=== PATIENT | female | born 1935 | race Caucasian/White ===

== ENCOUNTER → 2016-07-01 | Outpatient (CLI) | payer OTHER ==
[~2016-07-01] VITALS: Ht 149.9 cm; Wt 59.9 kg
[~2016-07-01] MED LIST: ADULT LOW DOSE81 MG PO; ALPHA LIPOIC A300 MG PO; AMOXICILLIN500 M1 PO; BYSTOLIC 5 MG5 M1 PO; CALTRATE 600 +1 EACH PO; CALTRATE-600 W1 EACH PO; CELEBREX 200 M200 M1 PO; CELEBREX 200 M200 MG PO; CIPROFLOXACIN500 M1 PO; CLARITIN-D 241 EACH PO; CLARITIN10 MG PO; CO Q-10100 MG PO; DRAMAMINE25 MG PO; DURAGESIC1 EAC2 TD; ENDOCET 10-3251 EACH PO; ENDOCET 5-3251 EACH PO; FENTANYL PA25 MCG/HR TD; FENTANYL PA50 MCG/HR TD; FENTANYL PA50 MCG/HR TP; FENTANYL PATCH75 MCG TD; FENTANYL PATCH75 MCG TP; FERRO-TIME325 MG PO; FOLIC ACID 40400 MC1 PO; FOLIC ACID0.8 MG PO; GABAPENTIN300 MG PO; GELNIQUE30 GM; HYDROCODON-ACE1 EAC5 PO; HYDROCODONE-AP1 EA12 PO; LEVOTHROID150 MCG PO; LYRICA 50 MG50 M1 PO; MACROBID 100 M100 M1 PO; MACRODANTIN50 MG PO; MEDROLDOSEPACK PO; METAMUCIL PAC1 UDPKT PO; METHADONE HCL 110 M1 PO; METHADONE HCL5 MG PO; METHADOSE10 M1 PO; METHADOSE10 MG PO; METHYLIN 10 MG10 MG PO; METHYLIN5 M1 PO; METHYLIN5 MG PO; METOCLOPRAMIDE10 MG PO; MIACALCIN IU; MS CONTIN30 MG PO; NASONEX17 GM NS; NEURONTIN 300300 M1 PO; NEURONTIN 300M300 M2 PO; NEURONTIN600 MG PO; NITROFURANTOIN50 M2 PO; NUCYNTA ER150 MG PO; NUCYNTA ER200 MG PO; NUCYNTA ER250 MG PO; OMEGA-31000 M1 PO; OMEPRAZOLE; ONDANSETRON HCL4 M2 PO; OXYCODONE-ACET1 EAC2 PO; OXYCODONE-ACET1 EACH PO; PERCOCET 10-321 EACH; PERCOCET 10-321 EACH PO; PREMARIN CREAM; PRILOSEC 10MG C10 M1 PO; PRILOSEC 20 MG20 MG PO; PROBIOTIC1 EACH PO; PROLOPRIM100 MG PO; SENNA PO; SENNA-S TABLET1 EACH PO; SENOKOT-S1 TA2 PO; SIMVASTATIN40 MG PO; SINGULAIR 10 MG10 M1 PO; SM NATURAL BAL100 MG PO; SYNTHROID125 MCG PO; TRAMADOL 50 MG50 MG PO; TURMERIC500 MG PO; VITAMIN D1000 UNI1 PO; VITAMIN D400 UNI4; VITCB500GO; XANAX 0.25 MG0.25 MG PO; ZOFRAN 4 MG ORAL4 M1 DIS; ZOFRAN4 MG PO; ZYRTEC 10 MG TA10 M1 PO
--- NOTE | ~2016-07-01 | HPC ---
[facility] [place] [address] [address] PAIN MANAGEMENT CONSULTATION Name: IDRIS BARKER Room #: REG Aryan Francis#: [id number] Admission: 07/01/16 Attend Phys: Be Ness DO Discharge: Date of : 33 Report #: [id number] THIS REPORT FOR: //name// CC: Anthony Ness The patient is an 81-year-old female, well known to the pain clinic, being treated for thoracolumbar scoliosis, chronic pain syndrome, requiring complex medication management. Last seen in the pain clinic on 05/13/2016. Her management is complicated by some ongoing cognitive decline, though she is seen in the company of her who is an excellent historian, and very helpful with her care. Last visit, we had patient utilizing 150 mg tapentadol b.i.d. with Percocet for breakthrough pain. We had tried to increase the dose from 200 to 250 over the course of days. At 250 mg, the patient notes really, he cannot note any change different than at 150 mg b.i.d. of tapentadol. She does still use Percocet typically mid morning, rarely in the afternoon. PHYSICAL EXAMINATION: Shows an 81-year-old female, BMI is 26.6 kilograms per meter squared. Vital signs are stable as noted in the EMR. Rises from the chair using armrest. Diffuse tenderness in the mid back area. Thoracolumbar scoliosis appreciated. Lower extremity strength is symmetric. Straight leg raise is negative. Skin integument is intact. We reviewed the fact that opiate medications are being used to provide analgesia adequate to support activities of daily living, not attempting to achieve a specific pain score on the 0-10 Visual Analog Scale. The current opiate medications are providing sufficient analgesia to allow the patient to participate in activities of daily living. The patient is not exhibiting any aberrant behavior suggestive of drug diversion. The patient is not having any adverse reactions to medications. The patient is not suffering from daytime somnolence or mental acuity changes. The patient is managing opiate-induced constipation with appropriate nhyl-ihc-wbmgrqe agents and dietary considerations. The patient was counseled on concern for caution with operating a motor vehicle while using opiate medications. A physical exam was performed and the patient's functional status was evaluated. All patients with back pain were advised against the bed rest greater than 4 days and were advised to return to normal activities. Pain score assessment was noted and the treatment plan was reviewed with the patient. All current medications, both prescribed and OTC were reviewed and reconciled on the electronic medical record. Tobacco screening was accomplished and smoking cessation was advised when indicated. BMI was noted and diet/exercise modification was recommended for all patients following outside normal parameters. [address] [address] PAIN MANAGEMENT CONSULTATION Name: MJIDRIS Room #: REG SETH Francis#: [id number] Admission: 07/01/16 Attend Phys: Be Ness DO Discharge: Date of : 33 Report #: [id number] I reviewed with the patient today their responsibilities to safeguard prescription medications, reviewed their responsibility to utilize medications only as prescribed by the physician. They are to seek and receive pain medications only from 1 physician group ( [facility]). They are to use 1 pharmacy and keep the clinic informed if they change pharmacies. Their responsibilities include making followup visits in a timely fashion and to avoid abrupt discontinuation of medication usage. Their responsibilities further include bringing their medications (bottles from the pharmacy with residual pills) to the visit for possible confirmation of pill counts and the patient understands it is their responsibility to submit to random drug screens to ensure both that the medications prescribed are present, and that no other controlled substances are present. All prescriptions provided today were generated electronically. ASSESSMENT: Thoracolumbar scoliosis and spondylosis, requiring complex medication management, chronic pain syndrome, medication management compounded by comorbidities including cognitive decline. RECOMMENDATION: After long discussion with the patient and her today, we have elected to rotate back to tapentadol 150 mg b.i.d. Continue Percocet 10/325 one tablet up to once a day as needed for breakthrough pain. Follow up in 2 months for reevaluation. <ELECTRONICALLY SIGNED> By: Be Ness DO 07/08/16 0858 1539 Be Ness DO /nt
[2016-07-01 11:37] VITALS: BP 124/69
== END | disposition home or self-care (01) ==
LOC: PAIN 06:47
DX: M47.895 Other spondylosis, thoracolumbar region (principal); G89.4 Chronic pain syndrome

== ENCOUNTER → 2016-10-24 | Outpatient (CLI) | payer OTHER ==
[~2016-10-24] VITALS: Ht 149.9 cm; Wt 59.0 kg
[~2016-10-24] MED LIST changes: +DURAGESIC1 EAC2 TRANSDERM
--- NOTE | ~2016-10-24 | HPC ---
[facility] [place] [address] [place] [address] PAIN MANAGEMENT CONSULTATION Name: IDRIS HERNANDEZ Room #: REG PIPERAryan Francis#: [id number] Admission: 10/24/16 Attend Phys: Be Ness DO Discharge: Date of : 33 Report #: [id number] THIS REPORT FOR: //name// CC: Anthony Ness The patient is an 81-year-old female well known to the pain clinic, typically treated for thoracolumbar scoliosis and spondylosis causing chronic pain syndrome requiring complex medication management. Her comorbidities of significant declining cognitive ability and dementia is problematic. We have tried multiple opiates over time. Last visit 08/26/2016, we had discontinued tapentadol, we had trialed various doses. Last dose was 150 mg b.i.d. I tried to prescribe the Nucynta ER, though this was much too costly. Last visit, we ultimately elected to go back to Percocet 10/325 one-half tablet 4 times a day. Returns to the pain clinic today, unfortunately noting ongoing pain concerns. She is seen as usual with her who is very helpful in providing her history. Again, pain primarily low back, left greater than right. They do feel in retrospect, the Nucynta was much better, but it was quite costly and they simply cannot afford it. This puts us in a difficult position. She is complaining of some dizziness, low back pain. She uses a walker both for balance and for offloading some weight. They do like to get to the mall or large box stores and do some walking. With the spring weather coming up, she is trying to do some walking outdoors, but pain is quite problematic. She rates as 7-8 on a 0-10 visual analog scale. Notes pain is exacerbated any time she is standing or walking. PHYSICAL EXAMINATION: Unchanged. An 81-year-old female, pleasantly befuddled. BMI is 25.7 kilograms per meter squared. Vital signs are stable as noted in the EMR. She rises from chair using armrest. Gait is a little ataxic. Diffuse tenderness across the low back. We reviewed the fact that opiate medications are being used to provide analgesia adequate to support activities of daily living, not attempting to achieve a specific pain score on the 0-10 Visual Analog Scale. The current opiate medications are providing sufficient analgesia to allow the patient to participate in activities of daily living. The patient is not exhibiting any aberrant behavior suggestive of drug diversion. The patient is not having any adverse reactions to medications. The patient is not suffering from daytime somnolence or mental acuity changes. The patient is managing opiate-induced constipation with appropriate dmxy-pov-ljapmuh agents and dietary considerations. The patient was counseled on concern for caution with operating a motor vehicle while using opiate medications. A physical exam was performed and the patient's functional status was evaluated. [address] [address] PAIN MANAGEMENT CONSULTATION Name: IDRIS HERNANDEZ Room #: REG [facility] Penny#: [id number] Admission: 10/24/16 Attend Phys: Be eNss DO Discharge: Date of : 33 Report #: [id number] All patients with back pain were advised against the bed rest greater than 4 days and were advised to return to normal activities. Pain score assessment was noted and the treatment plan was reviewed with the patient. All current medications, both prescribed and OTC were reviewed and reconciled on the electronic medical record. Tobacco screening was accomplished and smoking cessation was advised when indicated. BMI was noted and diet/exercise modification was recommended for all patients following outside normal parameters. I reviewed with the patient today their responsibilities to safeguard prescription medications, reviewed their responsibility to utilize medications only as prescribed by the physician. They are to seek and receive pain medications only from 1 physician group ( [facility]). They are to use 1 pharmacy and keep the clinic informed if they change pharmacies. Their responsibilities include making followup visits in a timely fashion and to avoid abrupt discontinuation of medication usage. Their responsibilities further include bringing their medications (bottles from the pharmacy with residual pills) to the visit for possible confirmation of pill counts and the patient understands it is their responsibility to submit to random drug screens to ensure both that the medications prescribed are present, and that no other controlled substances are present. All prescriptions provided today were generated electronically. ASSESSMENT: Thoracolumbar scoliosis and spondylosis requiring complex medication management with comorbidity including dwindling cognitive function. RECOMMENDATIONS: After long discussion with Mr. Hernandez and the patient, we have elected to trial a Duragesic patch. We have done this once before in the distant past. We will leave the lowest dose, 12 mcg q. 72 hours. I will ask them to put the patch on tonight and then tomorrow morning try and use the least amount of one-half Percocet tablets they can throughout the 24-hour cycle. I have taken the liberty of writing for 2 weeks (5 patches). I did provide them with a 2-week release prescription. If this is efficacious, we will see them back in 6 weeks, otherwise we will see them back within 1-2 weeks. The patient was discharged in good and stable condition. We spent a moderately prolonged period of time from approximately 10:38-11:05. Greater than 50% of the 25+ minute visit was spent counseling the patient, reviewing therapeutic options, medical history and making complex medication decisions. <ELECTRONICALLY SIGNED> By: Be Ness DO 10/25/16 1308 [id number] Be Ness DO /nt
[2016-10-24 14:15] VITALS: BP 142/81
== END | disposition home or self-care (01) ==
LOC: PAIN 07:30
DX: M41.85 Other forms of scoliosis, thoracolumbar region (principal); M47.895 Other spondylosis, thoracolumbar region; G89.29 Other chronic pain

== ENCOUNTER → 2016-11-14 | Outpatient (CLI) | payer OTHER ==
[~2016-11-14] VITALS: Ht 149.9 cm; Wt 60.7 kg
[~2016-11-14] MED LIST changes: +DURAGESIC1 EAC3 TD
--- NOTE | ~2016-11-14 | HPC ---
[facility] [address] [place] [address] PAIN MANAGEMENT CONSULTATION Name: IDRIS BARKER Room #: REG PIPERAryan Francis#: [id number] Admission: 11/14/16 Attend Phys: Be Ness DO Discharge: Date of : 33 Report #: [id number] THIS REPORT FOR: //name// CC: Anthony Ness The patient is an 81-year-old female being treated for thoracolumbar scoliosis and spondylosis, chronic pain syndrome requiring complex medication management. Comorbidity including significant cognitive decline and dementia does make medication management problematic. She is seen in the company of her who has always supportive. We had tried multiple medications over time. Ultimately at last visit, we trialed reverting back to Duragesic at 12 mcg. After two cycles, she still has ongoing pain. Continued use Percocet for breakthrough pain. I had them increase the dose to 2 tablets i.e. 24 mcg of Duragesic. Today, they tell me that this seems to be quite helpful. She is using Percocet 10/325 typically 1 to 1-1/2 tablets a day. reports that she is much more functional. No problems with daytime somnolence, mental acuity changes, or constipation. The patient tells me that her subjective pain score is 3/10, it is the lowest number I have seen. Her gait is tandem. She looks a little less painful and is indeed in good spirits. Per both the patient and her , she does seem to be much more active. PHYSICAL EXAMINATION: Otherwise fairly unremarkable, 81-year-old female. BMI is 27 kilograms per meter squared. Vital signs are stable as noted on the EMR. Does not use tobacco products. Arise from chair easily. Gait is tandem. She has some scoliosis with tenderness across the low back, but no discrete trigger points noted. ASSESSMENT: Symptomatic thoracolumbar scoliosis with spondylosis, chronic pain syndrome requiring complex medication management with comorbidity of moderate dementia. RECOMMENDATION: Ultimately, we have elected to increase Duragesic to 25 mcg patch. Continue Percocet , limit 1 to 1-1/2 tablets a day, i.e., 45 tablets for 30 days. I have taken the liberty of writing for 2 months of current medication. Follow up at that time, earlier if needed. <ELECTRONICALLY SIGNED> By: Be Ness DO 11/15/16 0713 1520 2330 Be Ness DO /nt
[2016-11-14 14:21] VITALS: BP 112/68
== END | disposition home or self-care (01) ==
LOC: PAIN 07:22
DX: M41.85 Other forms of scoliosis, thoracolumbar region (principal); M47.895 Other spondylosis, thoracolumbar region; G89.4 Chronic pain syndrome; F03.90 Unspecified dementia, unspecified severity, without behavioral disturbance, psychotic disturbance, mood disturbance, and anxiety

== ENCOUNTER → 2017-01-09 | Outpatient (CLI) | payer OTHER ==
[~2017-01-09] VITALS: Ht 152.4 cm; Wt 60.9 kg
[~2017-01-09] MED LIST changes: +DIAZEPAM 2MG TAB2 MG PO
[2017-01-09 12:36] VITALS: BP 154/86
== END | disposition home or self-care (01) ==
LOC: PAIN 07:30
DX: M47.895 Other spondylosis, thoracolumbar region (principal); M41.85 Other forms of scoliosis, thoracolumbar region; F03.90 Unspecified dementia, unspecified severity, without behavioral disturbance, psychotic disturbance, mood disturbance, and anxiety

== ENCOUNTER → 2017-03-13 | Outpatient (CLI) | payer OTHER ==
[~2017-03-13] VITALS: Ht 152.4 cm; Wt 59.9 kg
[~2017-03-13] MED LIST changes: +DURAGESIC25 MCG/HR TRANSDERM; +Fentanyl Patch 25 Mc TRANSDERM; +VALIUM5 MG PO
--- NOTE | ~2017-03-13 | HPC ---
[facility] [address] [facility] [address] PAIN MANAGEMENT CONSULTATION Name: IDRIS HERNANDEZ Room #: REG SETH Francis#: [id number] Admission: 03/13/17 Attend Phys: eB Ness DO Discharge: Date of : 33 Report #: [id number] THIS REPORT FOR: //name// CC: Anthony Ness The patient is an 82-year-old female, long known to the pain clinic, typically treated for thoracolumbar spondylosis and scoliosis, axial back pain, requiring high risk complex medication management complicated by significant dementia. The patient returns to pain clinic today, last visit was 01/09/2017. We continued the patient on Duragesic 25 mcg q. 72 hours, Percocet 10/325 half to one tablet, limit 45 tablets for 30 days and gabapentin 600 mg t.i.d. Returns to pain clinic today in the company of her who is extremely supportive. The patient looks pretty good today. She is alert and oriented, though again memory short-term is incredibly poor. Does note some mid low back pain, chronic, rates at a 6 on a VAS. Mr. Hernandez tells me that she is continuing with her Duragesic patch 25 mcg q. 72 hours. He typically gives her one-half oxycodone tablet every morning and then she may or may not use any other tablets throughout the day. She did have 1 tablet this afternoon before coming to today's appointment. At last visit, I talked about increasing physical activity. She still remains relatively sedentary. We talked about trying to increase her physical activity with recreational walking 10-20 minutes daily. Mr. Hernandez notes that usually about after 15 minutes or so on her feet, she does start to complain of axial back pain. She notes that she has been hoping to make the bed. They have lowered the bed, taking away one mattress to keep it closer to the bed for fear of falls. She states her back pain does hurt when she makes to bed, but she has continued to do this ____. PHYSICAL EXAMINATION: Otherwise unchanged, an 82-year-old female, BMI is 25.8 kilograms per meter squared. Vital signs stable as noted in the EMR. Subjective pain score is 6 on a VAS. Pain primarily in the mid thoracic to upper lumbar back, significant thoracolumbar scoliosis. Lower extremity strength is preserved. Again, she appears alert, but recall is poor. We reviewed the fact that opiate medications are being used to provide analgesia adequate to support activities of daily living, not attempting to achieve a specific pain score on the 0-10 Visual Analog Scale. The current opiate medications are providing sufficient analgesia to allow the patient to participate in activities of daily living. The [place] [address] PAIN MANAGEMENT CONSULTATION Name: IDRIS HERNANDEZ Room #: REG SETH Francis#: [id number] Admission: 03/13/17 Attend Phys: Be Ness DO Discharge: Date of : 33 Report #: [id number] aberrant behavior suggestive of drug diversion. The patient is not having any adverse reactions to medications. The patient is not suffering from daytime somnolence or mental acuity changes. The patient is managing opiate-induced constipation with appropriate edwz-hbz-ydynfte agents and dietary considerations. The patient was counseled on concern for caution with operating a motor vehicle while using opiate medications. A physical exam was performed and the patient's functional status was evaluated. All patients with back pain were advised against the bed rest greater than 4 days and were advised to return to normal activities. Pain score assessment was noted and the treatment plan was reviewed with the patient. All current medications, both prescribed and OTC were reviewed and reconciled on the electronic medical record. Tobacco screening was accomplished and smoking cessation was advised when indicated. BMI was noted and diet/exercise modification was recommended for all patients following outside normal parameters. I reviewed with the patient today their responsibilities to safeguard prescription medications, reviewed their responsibility to utilize medications only as prescribed by the physician. They are to seek and receive pain medications only from 1 physician group ( [facility]). They are to use 1 pharmacy and keep the clinic informed if they change pharmacies. Their responsibilities include making followup visits in a timely fashion and to avoid abrupt discontinuation of medication usage. Their responsibilities further include bringing their medications (bottles from the pharmacy with residual pills) to the visit for possible confirmation of pill counts and the patient understands it is their responsibility to submit to random drug screens to ensure both that the medications prescribed are present, and that no other controlled substances are present. All prescriptions provided today were generated electronically. Long discussion with Mr. Hernandez and the patient today. The patient seems to be remarkably stable on current medication. We had gone through a host of other agents, I am pleased that with current medications, she is doing well. I have elected to write for a 3 month prescription today. Follow up in 3 months for reevaluation, earlier if needed. By: [id number] Be Ness DO /nt
[2017-03-13 13:59] VITALS: BP 145/79
== END | disposition home or self-care (01) ==
LOC: PAIN 07:11
DX: M47.895 Other spondylosis, thoracolumbar region (principal); M41.85 Other forms of scoliosis, thoracolumbar region; Z79.899 Other long term (current) drug therapy

== ENCOUNTER → 2017-07-10 | Outpatient (CLI) | payer OTHER ==
[~2017-07-10] VITALS: Ht 152.4 cm; Wt 60.8 kg
[~2017-07-10] MED LIST changes: +DURAGESIC1 EAC4 TRANSDERM; +SYNTHROID100 MC1 PO; -SYNTHROID125 MCG PO
--- NOTE | ~2017-07-10 | HPC ---
[facility] [place] [address] PAIN MANAGEMENT CONSULTATION Name: IDRIS BARKER Room #: REG SETH Penny#: [id number] Admission: 07/10/17 Attend Phys: Be Ness DO Discharge: Date of : 33 Report #: [id number] THIS REPORT FOR: //name// CC: Anthony Ness HISTORY OF PRESENT ILLNESS: The patient is an 82-year-old female, was typically treated for thoracolumbar scoliosis and spondylosis, axial back pain requiring high risk complex medication management. Last seen in the pain clinic on 03/13/2017. Continue on Duragesic 25 mcg q. 72 hours, gabapentin 600 mg t.i.d. and Percocet 10/325 half to one tablet 2-3 times a day and limit 45 tablets for 30 days. The patient returns to pain clinic today noting medications are providing sufficient analgesia for the patient to participate in the activities of daily living. She has a fairly profound dementia. She is well cared for by her . She is always "pleasantly befuddled." She did have a little vertigo. She saw an alcoholic counselor and diagnosed with acute labyrinthitis. She is going to physical therapy for Rosalia maneuvers tomorrow. Otherwise, she is doing reasonably well. Rates pain a 6 or 7 on a VAS. This is unchanged for the patient. She notes that this mild pain is across the low back, but she does continue to participate in activities of daily living. We reviewed the fact that opiate medications are being used to provide analgesia adequate to support activities of daily living, not attempting to achieve a specific pain score on the 0-10 Visual Analog Scale. The current opiate medications are providing sufficient analgesia to allow the patient to participate in activities of daily living. The patient is not exhibiting any aberrant behavior suggestive of drug diversion. The patient is not having any adverse reactions to medications. The patient is not suffering from daytime somnolence or mental acuity changes. The patient is managing opiate-induced constipation with appropriate jhzu-kln-ozavuen agents and dietary considerations. The patient was counseled on concern for caution with operating a motor vehicle while using opiate medications. A physical exam was performed and the patient's functional status was evaluated. All patients with back pain were advised against the bed rest greater than 4 days and were advised to return to normal activities. Pain score assessment was noted and the treatment plan was reviewed with the patient. All current medications, both prescribed and OTC were reviewed and reconciled on the electronic medical record. Tobacco screening was accomplished and smoking cessation was advised when indicated. BMI was noted and diet/exercise modification was recommended for all patients following outside normal parameters. [address] [address] PAIN MANAGEMENT CONSULTATION Name: MJIDRIS Room #: REG SETH Francis#: [id number] Admission: 07/10/17 Attend Phys: Be Ness DO Discharge: Date of : 33 Report #: [id number] I reviewed with the patient today their responsibilities to safeguard prescription medications, reviewed their responsibility to utilize medications only as prescribed by the physician. They are to seek and receive pain medications only from 1 physician group ([facility]). They are to use 1 pharmacy and keep the clinic informed if they change pharmacies. Their responsibilities include making followup visits in a timely fashion and to avoid abrupt discontinuation of medication usage. Their responsibilities further include bringing their medications (bottles from the pharmacy with residual pills) to the visit for possible confirmation of pill counts and the patient understands it is their responsibility to submit to random drug screens to ensure both that the medications prescribed are present, and that no other controlled substances are present. All prescriptions provided today were generated electronically. PHYSICAL EXAMINATION: GENERAL: Shows 82-year-old female, BMI is 26.2 kilograms per meter squared. VITAL SIGNS: Stable, seen in the company of her who is supportive NEUROLOGICAL: Extraocular nerves are intact. I do not detect any nystagmus or lateral gaze deviation, but she does have some subjective vertigo. MUSCULOSKELETAL: Rises from chair using armrest. Diffuse tenderness across the low back, significant thoracolumbar scoliosis and lower extremity strength is symmetric. ASSESSMENT: Thoracolumbar scoliosis and spondylosis, axial back pain requiring high risk complex medication management, stable on baseline medications. RECOMMENDATION: Continue current medication unchanged, Duragesic 25 mcg q. 72 hours, Percocet 10/325 half to one tablet up to 2-3 times a day, limit 45 tablets for 30 days and gabapentin 600 mg t.i.d. Follow up in 3 months for reevaluation, earlier if needed. <ELECTRONICALLY SIGNED> By: Be Ness DO 07/11/17 0758 [id number] 2312 Be Ness DO /nt
[2017-07-10 12:58] VITALS: BP 135/71
== END ==
LOC: PAIN 06-26 07:08
DX: M41.85 Other forms of scoliosis, thoracolumbar region (principal); M47.895 Other spondylosis, thoracolumbar region; Z79.899 Other long term (current) drug therapy

== ENCOUNTER → 2017-10-06 | Outpatient (CLI) | payer OTHER ==
[~2017-10-06] VITALS: Ht 149.9 cm; Wt 59.4 kg
[~2017-10-06] MED LIST changes: -SYNTHROID100 MC1 PO; +SYNTHROID125 MCG PO
--- NOTE | ~2017-10-06 | HPC ---
[facility] [place] [address] PAIN MANAGEMENT CONSULTATION Name: IDRIS BARKER Room #: REG Aryan Dori.#: [id number] Admission: 10/06/17 Attend Phys: Be Ness DO Discharge: Date of : 33 Report #: [id number] THIS REPORT FOR: //name// CC: Anthony Ness DATE OF SERVICE: 10/06/2017 The patient is a very pleasant 82-year-old female, long known to the pain clinic, typically treated for thoracolumbar scoliosis, spondylosis, axial back pain requiring high risk complex medication management. Last seen in the pain clinic 07/10/2017. Continued on Duragesic 25 mcg q.72h., gabapentin 600 mg t.i.d., Percocet 10/325 a half to one tablet 2-3 times a day, limit 45 tablets for 30 days. Returns to pain clinic today, seen in the company of her who is supportive. She has increasing dementia, as usually pleasant. She is having some vertigo, did see a physical therapist and had Rosalia maneuvers in June, which afforded good relief of her vertigo and dizziness, though her notes that this is beginning to recur. Rates her pain a 4 on VAS though notes occasionally pain is problematic. Whenever asked if she has pain, she typically replies in the affirmative. PHYSICAL EXAMINATION: Shows 82-year-old female, BMI is 26.4 kilograms per meter squared. Vital signs are stable as noted in the EMR. Has mild nystagmus, left greater than right gaze deviation. Has a moderate ataxic gait. Does use a walker for balance. Lower extremity strength is generally preserved. Diffuse tenderness across the low back. No discrete trigger points noted. RECOMMENDATION: Discussion with the patient and her today. does provide the majority of the history. The patient states that she has some episodic somnolence. No problems with constipation. notes that they have been occasionally using a full Percocet tablet prior to activity where they are a little more involved, i.e., going out to the doctor's office or shopping. Otherwise, a half tablet seems to suffice. We reviewed the fact that opiate medications are being used to provide analgesia adequate to support activities of daily living, not attempting to achieve a specific pain score on the 0-10 Visual Analog Scale. The current opiate medications are providing sufficient analgesia to allow the patient to participate in activities of daily living. The patient is not exhibiting any aberrant behavior suggestive of drug diversion. The patient is not having any adverse reactions to medications. The patient is not suffering from daytime somnolence or mental acuity changes. The patient is managing opiate-induced constipation with appropriate mclw-qrf-gicjedz agents and dietary considerations. The patient was counseled on concern for [place] [address] PAIN MANAGEMENT CONSULTATION Name: IDRIS BARKER Room #: REG SETH Francis#: [id number] Admission: 10/06/17 Attend Phys: Be Ness DO Discharge: Date of : 33 Report #: [id number] a motor vehicle while using opiate medications. A physical exam was performed and the patient's functional status was evaluated. All patients with back pain were advised against the bed rest greater than 4 days and were advised to return to normal activities. Pain score assessment was noted and the treatment plan was reviewed with the patient. All current medications, both prescribed and OTC were reviewed and reconciled on the electronic medical record. Tobacco screening was accomplished and smoking cessation was advised when indicated. BMI was noted and diet/exercise modification was recommended for all patients following outside normal parameters. I reviewed with the patient today their responsibilities to safeguard prescription medications, reviewed their responsibility to utilize medications only as prescribed by the physician. They are to seek and receive pain medications only from 1 physician group ( [facility]). They are to use 1 pharmacy and keep the clinic informed if they change pharmacies. Their responsibilities include making followup visits in a timely fashion and to avoid abrupt discontinuation of medication usage. Their responsibilities further include bringing their medications (bottles from the pharmacy with residual pills) to the visit for possible confirmation of pill counts and the patient understands it is their responsibility to submit to random drug screens to ensure both that the medications prescribed are present, and that no other controlled substances are present. All prescriptions provided today were generated electronically. ASSESSMENT: Thoracolumbar scoliosis, spondylosis, axial back pain requiring complex medication management. The patient is stable on baseline medication. RECOMMENDATIONS: We will continue Duragesic 25 mcg q.72h.; Percocet 10/325 half to one tablet b.i.d. t.i.d., limit 45 tablets for 30 days. I have taken the liberty of writing for 2 months of current medication. Reviewing the chart actually I do not see a recent drug screen. I am dictating after the patient left the clinic, we will endeavor to get a buccal swab at next visit. Again, no aberrant behavior suggestive for drug diversion, simply complying with her opiate consent to treat contract. <ELECTRONICALLY SIGNED> By: Be Ness DO 10/08/17 0819 1637 24 Be Ness, DO /nt
[2017-10-06 13:25] VITALS: BP 142/78
== END ==
LOC: PAIN 06:47
DX: M47.895 Other spondylosis, thoracolumbar region (principal); Z79.899 Other long term (current) drug therapy

== ENCOUNTER → 2017-12-08 | Outpatient (CLI) | payer OTHER ==
[~2017-12-08] VITALS: Ht 149.9 cm; Wt 61.2 kg
[~2017-12-08] MED LIST changes: +SYNTHROID100 MC1 PO; -SYNTHROID125 MCG PO
--- NOTE | ~2017-12-08 | HPC ---
[facility] [place] [address] [place] [address] PAIN MANAGEMENT CONSULTATION Name: IDRIS BARKER Room #: REG SETH Francis#: [id number] Admission: 12/08/17 Attend Phys: Be Ness DO Discharge: Date of : 33 Report #: [id number] THIS REPORT FOR: //name// CC: Anthony Ness DATE OF SERVICE: 12/08/2017 HISTORY OF PRESENT ILLNESS: The patient is a very pleasant 82-year-old female, long treated for thoracolumbar scoliosis, spondylosis, axial back pain requiring complex medication management. Comorbidity includes dementia. She has always seen in the company of her who is very supportive. Last seen in pain clinic, 10/06/2017, continued on Duragesic 25 mcg q.72 hours, Percocet 10/325 typically 1-1/2 tablets a day, gabapentin 600 mg t.i.d. The patient returns to pain clinic today, we had a prolonged visit from 12:50 to 1315, greater than 50% of this 25+ minute visit was spent counseling the patient. We did get a buccal drug swab today. No aberrant behavior suggestive of drug diversion, simply complying with the opiate consent to treat contract. The patient notes ongoing pain, low back, buttock, and left leg. Axial back pain again relatively unchanged. Little concerned about the radicular pain component, though she rates the pain a 4 on a VAS. Today, her and I did talk about other therapeutic options. He asked about CBD oil. I suggested that maybe a reasonable thing to trial. If he buys it at a licensed distributor in [place], which recently made CBD oil legal, it should have no THC. If the patient experiences any cognitive concerns with this agent, I would discontinue it abruptly. If, however, it affords her some relief, we will be able to wean down a little bit on her Percocet. PHYSICAL EXAMINATION: GENERAL: Otherwise shows an 82-year-old female, pleasant and actually a little more alert today than I had seen her in some time. She does wax and wane with cognition. VITAL SIGNS: BMI is 27.3 kilograms per meter squared. Blood pressure is 161/87, pulse 66, respirations of 15. MUSCULOSKELETAL: Rises from chair using armrest, modestly antalgic gait, uses a walker for balance, but she can take a few steps on her own. Diffuse tenderness across the low back. No discrete trigger points are noted. Left leg does show some slight decrease in hip flexion, lower extremity extension strength, decrease patellar reflex, though straight leg raise is negative. We reviewed the fact that opiate medications are being used to provide analgesia [address] [address] PAIN MANAGEMENT CONSULTATION Name: IDRIS BARKER Room #: REG SETH Francis#: [id number] Admission: 12/08/17 Attend Phys: Be Ness DO Discharge: Date of : 33 Report #: [id number] adequate to support activities of daily living, not attempting to achieve a specific pain score on the 0-10 Visual Analog Scale. The current opiate medications are providing sufficient analgesia to allow the patient to participate in activities of daily living. The patient is not exhibiting any aberrant behavior suggestive of drug diversion. The patient is not having any adverse reactions to medications. The patient is not suffering from daytime somnolence or mental acuity changes. The patient is managing opiate-induced constipation with appropriate pkiq-rtp-ciqyvyw agents and dietary considerations. The patient was counseled on concern for caution with operating a motor vehicle while using opiate medications. A physical exam was performed and the patient's functional status was evaluated. All patients with back pain were advised against the bed rest greater than 4 days and were advised to return to normal activities. Pain score assessment was noted and the treatment plan was reviewed with the patient. All current medications, both prescribed and OTC were reviewed and reconciled on the electronic medical record. Tobacco screening was accomplished and smoking cessation was advised when indicated. BMI was noted and diet/exercise modification was recommended for all patients following outside normal parameters. I reviewed with the patient today their responsibilities to safeguard prescription medications, reviewed their responsibility to utilize medications only as prescribed by the physician. They are to seek and receive pain medications only from 1 physician group ( [facility]). They are to use 1 pharmacy and keep the clinic informed if they change pharmacies. Their responsibilities include making followup visits in a timely fashion and to avoid abrupt discontinuation of medication usage. Their responsibilities further include bringing their medications (bottles from the pharmacy with residual pills) to the visit for possible confirmation of pill counts and the patient understands it is their responsibility to submit to random drug screens to ensure both that the medications prescribed are present, and that no other controlled substances are present. All prescriptions provided today were generated electronically. ASSESSMENT: Thoracolumbar scoliosis with spondylosis with ongoing axial back pain requiring complex medication management, component of left L4 radiculopathy status post multiple back surgeries. The patient is generally stable on baseline medications. RECOMMENDATION: Continue Duragesic 25 mcg q.72 hours. Continue Percocet 10/325 one-half tablet 3 times a day (45 tablets for 30 days). Continue gabapentin 600 mg t.i.d. I have taken the liberty of writing for 2 months of current medication. We will have her follow up with one of my [facility]. [facility] [address] [place] [address] PAIN MANAGEMENT CONSULTATION Name: IDRIS BARKER Room #: REG SETH Francis#: [id number] Admission: 12/08/17 Attend Phys: Be Ness DO Discharge: Date of : 33 Report #: [id number] Stable on baseline medication for quite some time. I did suggest she consider trialing CBD oil at her 's request, may help with ongoing pain concerns. Discharged in good and stable condition. By: 1518 0045 Be Ness DO /nt
[2017-12-08 12:38] VITALS: BP 161/87
== END ==
LOC: PAIN 06:33
DX: M47.815 Spondylosis without myelopathy or radiculopathy, thoracolumbar region (principal); M41.85 Other forms of scoliosis, thoracolumbar region; M54.5 Low back pain; Z79.899 Other long term (current) drug therapy

== ENCOUNTER → 2018-03-18 | Outpatient (CLI) | payer OTHER ==
[~2018-03-18] VITALS: Ht 149.9 cm; Wt 58.4 kg
--- NOTE | ~2018-03-18 | HPC ---
[facility] [address] [place] [address] PAIN MANAGEMENT CONSULTATION Name: IDRIS BARKER Room #: REG SETH Dori.#: [id number] Admission: 03/18/18 Attend Phys: Edson Ness DO Discharge: Date of : 33 Report #: [id number] THIS REPORT FOR: //name// CC: Anthony Ness DATE OF SERVICE: 03/18/2018 REFERRING PHYSICIAN: Anthony Dickens M.D. CHIEF COMPLAINT: Back pain. HISTORY OF PRESENT ILLNESS: As you know, the patient is an 83-year-old female who suffers from thoracolumbar scoliosis, spondylosis of the lumbar spine and axial back pain requiring complex medication management. Her comorbidity also includes some dementia. She returns today in followup visit with request to continue medication therapy. She is currently taking Duragesic at 25 mcg q. 72 hours and Percocet 10/325 one half tab to 1 tab per day. She is also taking gabapentin 600 mg morning and 1200 mg at night. She returns today in followup visit to adjust medication therapy as her pain is "uncontrolled." She is placing pain score at 8/10. ALLERGIES: DIPHENHYDRAMINE and CODEINE. CURRENT MEDICATIONS: Percocet 10/325 one half tab to 1 tab p.o. every day p.r.n. pain, fentanyl 25 mcg q. 72 hours, gabapentin 600 mg in the morning and 1200 mg at night, celecoxib 200 mg once a day and levothyroxine 100 mcg per day. SOCIAL HISTORY: The patient denies tobacco, alcohol or IV or illicit drug use. She is retired and retired years ago. She is accompanied by her present in room today. IMAGING DATA: No new imaging available. 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 No rheumatoid arthritis. She places pain intensity at 8/10. She is a fall risk but has not had a fall in last 3 months. She does use a cane for ambulation. She is not on blood thinner. She is treated for hypertension. She has been on opioids for an extended period of time. She is a low risk for opioid dependency. Functional assessment pain impact tool , ghyz-ep-bjndvpcu interference. PHYSICAL EXAMINATION: VITAL SIGNS: Blood pressure 142/84, pulse 72 and respiratory rate 14 and unlabored. The patient is 93% on room air. Height 4 feet 11 inches tall, [facility] [address] [place] [address] PAIN MANAGEMENT CONSULTATION Name: IDRIS BARKER [id number] Admission: 03/18/18 Attend Phys: Edson Ness DO Discharge: Date of : 33 Report #: [id number] weight 128.8 pounds and BMI calculated 26.0. GENERAL: Well-developed, well-nourished and well-hydrated kyphotic and scoliotic 83-year-old female appearing her stated age, placing current pain score at 8/10. HEENT: Normocephalic and atraumatic. Pupils equal, round and reactive to light. Extraocular muscles are intact. Speech is fluent for the patient. EXTREMITIES: Show no clubbing, no cyanosis and no edema. MUSCULOSKELETAL: The patient rises from a chair utilizing arm rest. She has a mildly antalgic gait favoring what appears to be left lower extremity over right. She has diffuse tenderness over the lower back. No spinous process tenderness. There is noted scoliosis, kyphosis and some dextroscoliotic curvature. ASSESSMENT: 1. Idiopathic scoliosis. 2. Idiopathic kyphosis. 3. 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 4. Axial back pain. 5. Failed lumbar spine surgery. 6. Complicated medical management. 7. Chronic intractable pain. PLAN: 1. The patient returns today in followup visit indicating pain that is a level of 8/10. She states that despite the use of opioids, her pain continues. It does appear her symptoms are more related to neuropathic issues and is not being treated effectively. I would recommend changes in the medication therapy in hopes of improving pain further. The patient and I discussed this at length today. 2. We reviewed the fact that opiate medications are being used to provide analgesia adequate to support activities of daily living, not attempting to achieve a specific pain score on the 0-10 Visual Analog Scale. The current opiate medications are providing sufficient analgesia to allow the patient to participate in activities of daily living. The patient is not exhibiting any aberrant behavior suggestive of drug diversion. The patient is not having any adverse reactions to medications. The patient is not suffering from daytime somnolence or mental acuity changes. The patient is managing opiate-induced constipation with appropriate injo-osf-sjgvndl agents and dietary considerations. The patient was counseled on concern for caution with operating a motor vehicle while using opiate medications. A physical exam was performed and the patient's functional status was evaluated. All patients with back pain were advised against the bed rest greater than 4 days and were advised to return to normal activities. Pain score assessment was noted and the treatment plan was reviewed with the patient. All current medications, both prescribed and OTC were reviewed and reconciled on the [address] [address] PAIN MANAGEMENT CONSULTATION Name: IDRIS BARKER Room #: REG CLAryan Francis#: [id number] Admission: 03/18/18 Attend Phys: Edson Ness DO Discharge: Date of : 33 Report #: [id number] electronic medical record. Tobacco screening was accomplished and smoking cessation was advised when indicated. BMI was noted and diet/exercise modification was recommended for all patients following outside normal parameters. I reviewed with the patient today their responsibilities to safeguard prescription medications, reviewed their responsibility to utilize medications only as prescribed by the physician. They are to seek and receive pain medications only from 1 physician group ( [facility]). They are to use 1 pharmacy and keep the clinic informed if they change pharmacies. Their responsibilities include making followup visits in a timely fashion and to avoid abrupt discontinuation of medication usage. Their responsibilities further include bringing their medications (bottles from the pharmacy with residual pills) to the visit for possible confirmation of pill counts and the patient understands it is their responsibility to submit to random drug screens to ensure both that the medications prescribed are present, and that no other controlled substances are present. All prescriptions provided today were generated electronically. 3. The patient was provided a refill prescription on her fentanyl 25 mcg patch 1 patch q. 72 hours and I have given the patient #10 patches, releases of today, 4 weeks from today, 8 weeks from today, 3 months' worth of medication. I would not recommend escalating fentanyl given the patient's underlying dementia and her age and this will only complicate the situation and would likely provide no improvement. 4. The patient was provided prescription of Percocet 1/2 tab to one tab p.o. every day, #45 with releases of today, 4 weeks from today, 8 weeks from today, 3 months' worth of medication. I again do not recommend escalating this dose, especially immediate release formulations in individuals that are often older age with already existing underlying mental decrease. This could complicate her situation and make her at a greater risk for falls. Do not recommend escalating this dose further. 5. The patient does have some neuropathic pain. I do feel needs to be addressed more effectively. Currently, she is taking gabapentin 600 mg morning and 1200 mg at night. Recommend escalating the dose to 600 mg morning, 300 mg at noon and 1200 mg at night for the next 5 days; then reach 600 mg in the morning, 600 mg noon and 1200 mg at night for 5 days and if necessary, then escalate the dose in the morning hours to 900 mg in the morning, 600 mg noon and 1200 mg at night. The patient has prescriptions available and does not need prescriptions of this medication. 6. We will see the patient back in followup visit in 3 months to discuss further treatment options. <ELECTRONICALLY SIGNED> By: Edson Ness DO 03/24/18 1259 1310 [id number] Edson Ness DO /nt
[2018-03-18 12:11] VITALS: BP 142/84
== END ==
LOC: PAIN 06:51
DX: M47.27 Other spondylosis with radiculopathy, lumbosacral region (principal); M41.86 Other forms of scoliosis, lumbar region; G89.4 Chronic pain syndrome; Z79.899 Other long term (current) drug therapy

== ENCOUNTER → 2018-06-10 | Outpatient (CLI) | payer OTHER ==
[~2018-06-10] VITALS: Ht 149.9 cm; Wt 67.6 kg
[2018-06-10 11:42] VITALS: BP 144/77
== END ==
LOC: PAIN 10:24
DX: M54.5 Low back pain (principal); G89.29 Other chronic pain; Z79.899 Other long term (current) drug therapy; Z79.891 Long term (current) use of opiate analgesic

== ENCOUNTER → 2018-09-23 | Outpatient (CLI) | payer OTHER ==
[~2018-09-23] VITALS: Ht 152.4 cm; Wt 59.9 kg
[~2018-09-23] MED LIST changes: +ASPIR 8181 MG PO; +CRANBERRY200 MG PO; +LIPITOR10 MG PO; +LISINOPRIL10 MG PO; +PROBIOTIC1 EAC1 PO; +VITAMIN D2000 UNIT PO
[2018-09-23 11:00] VITALS: BP 144/69
--- NOTE | 2018-09-23 11:04 | NUR ---
Pain Clinic Assessment: 1. History of Osteoarthritis: BACK History of Rheumatoid Arthritis: Not Applicable 2. Height: 5 ft. 0 in. 152.4 cm. Weight: 132.0 lb. oz. 59.875 kg. Patient's BMI: 25.8 3. Vital Signs: BP: 144/69 Pulse: 78 Resp: 16 Temp: 02 Sat: 95 ECG Mon: 4. Pain Intensity: 8 with walking 5. Fall Risk: Dizziness: N Needs help standing or walking: N Fallen in the last 3 months: N Fall risk comments: 6. Patient on Blood Thinner: None 7. History of Hypertension: Y 8. Opioid Therapy greater than 6 weeks: Y Opiate Contract Signed: 12/14/15 9. Risk Assessment Tool Provided: LOW RISK 0 10. Functional Assessment Tool: 11. Recreational Drug Use: Never Drug Type: Tobacco Use: Never Smoker Tobacco Type: Amount or Packs/day: How Many Years: Alcohol Use: No Frequency: Quant:
--- NOTE | 2018-09-24 09:25 | HPC ---
[facility] [place] [address] PAIN MANAGEMENT CONSULTATION Name: IDRIS BARKER Room #: REG [facility] Dori.#: [id number] Admission: 09/23/18 ������������������ Attend Phys: Quyen Loja Discharge: ������������������ Date of : 33 Report #: [id number] THIS REPORT FOR: //name// CC: Quyen Loja Anthony Dickens DATE OF SERVICE: 09/23/2018 CHIEF COMPLAINT: Back pain. HISTORY OF PRESENT ILLNESS: This is a very pleasant 83-year-old female who returns to the pain clinic today for refill of her medications. 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 She has had multiple back surgeries in the past. She is here with her who is very supportive of her. He does help her with her medications and does lots of work around the house since she is unable to due to her pain that increases when she is walking and standing. She tells me that her pain score is 8/10 today, mostly across her lower back, at the waistline. She says when she is sitting down and her medications do help her relieve this pain. She denies any constipation or daytime sleepiness. She is able to answer all my questions appropriately today. ALLERGIES: BENADRYL AND CODEINE. CURRENT LIST OF MEDICATIONS: Aspirin 81 mg daily, vitamin D3 daily, cranberry daily, probiotic daily, lisinopril 10 mg daily, atorvastatin 10 mg at bedtime, gabapentin 600 mg 3 times a day, Percocet 10/325 half to one tablet b.i.d., fentanyl patch 25 mcg every 72 hours, Celebrex 200 mg daily and thyroid medicine 100 mcg daily. PHYSICAL EXAMINATION: GENERAL: This is a well-developed, well-nourished, well-hydrated 83-year-old female, who appears as her stated age, placing her pain score today at 8/10. HEENT: Normocephalic, atraumatic. Pupils equal, round and reactive to light. Speech is fluent. She is answering questions appropriately today. EXTREMITIES: No clubbing, no cyanosis, no edema. MUSCULOSKELETAL: The patient rises from the chair using the arm rest and using her walker today. She does walk with an antalgic gait. She is noted to have thorough lumbar scoliosis and kyphosis. Lower extremity strength judged to be 4/5 bilaterally. ASSESSMENT: 1. Idiopathic scoliosis, idiopathic kyphosis. 2. 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 3. Axial back pain. 4. Failed lumbar spine surgery. 5. Complicated medical therapy under terms of written opioid agreement, [address] [address] PAIN MANAGEMENT CONSULTATION Name: IDRIS BARKER Room #: REG [facility] Francis#: [id number] Admission: 09/23/18 ������������������ Attend Phys: Quyen Loja Discharge: ������������������ Date of : 33 Report #: [id number] intractable back pain. We reviewed the fact that opiate medications are being used to provide analgesia adequate to support activities of daily living, not attempting to achieve a specific pain score on the 0-10 Visual Analog Scale. The current opiate medications are providing sufficient analgesia to allow the patient to participate in activities of daily living. The patient is not exhibiting any aberrant behavior suggestive of drug diversion. The patient is not having any adverse reactions to medications. The patient is not suffering from daytime somnolence or mental acuity changes. The patient is managing opiate-induced constipation with appropriate prcf-ile-pemorfp agents and dietary considerations. The patient was counseled on concern for caution with operating a motor vehicle while using opiate medications. A physical exam was performed and the patient's functional status was evaluated. All patients with back pain were advised against the bed rest greater than 4 days and were advised to return to normal activities. Pain score assessment was noted and the treatment plan was reviewed with the patient. All current medications, both prescribed and OTC were reviewed and reconciled on the electronic medical record. Tobacco screening was accomplished and smoking cessation was advised when indicated. BMI was noted and diet/exercise modification was recommended for all patients following outside normal parameters. I reviewed with the patient today their responsibilities to safeguard prescription medications, reviewed their responsibility to utilize medications only as prescribed by the physician. They are to seek and receive pain medications only from 1 physician group ( [facility]). They are to use 1 pharmacy and keep the clinic informed if they change pharmacies. Their responsibilities include making followup visits in a timely fashion and to avoid abrupt discontinuation of medication usage. Their responsibilities further include bringing their medications (bottles from the pharmacy with residual pills) to the visit for possible confirmation of pill counts and the patient understands it is their responsibility to submit to random drug screens to ensure both that the medications prescribed are present, and that no other controlled substances are present. All prescriptions provided today were generated electronically. PLAN: 1. We discussed treatment options with the patient and the family today. The patient is filling her medications appropriately through the PDMP report. We discussed the CDC guidelines and morphine mEq. The patient follows at 75 per MME with her current medications. Therefore, according to Dr. Ness, the patient has been very stable on these medications. We will give her 3 months' medications. Scripts given today of fentanyl 25 mcg, #10 for release today and 4-week and 8-week and Percocet 10/325 #45 to release today, 4-week and 8-week. [address] [address] PAIN MANAGEMENT CONSULTATION Name: IDRIS BARKER Room #: REG [facility] Francis#: [id number] Admission: 09/23/18 ������������������ Attend Phys: Quyen Loja Discharge: ������������������ Date of : 33 Report #: [id number] 2. The patient and family understand the CDC guidelines that are grateful for these medications and keep them safeguarded at all times. The patient and family tell me that they no longer need gabapentin medication filled by us, that Dr. Dickens has taken over writing these medications. 3. The patient will be seen in 3-month time period. The patient seen with Dr. Edson Ness who also collaborated care today. ��������������������������������������������� <ELECTRONICALLY SIGNED> ���������������������������������������� By: Quyen Loja ��������������������������������������������� 09/24/18 0925 1423 0801 Quyen Loja /fran
== END ==
LOC: PAIN 06:58
DX: M47.817 Spondylosis without myelopathy or radiculopathy, lumbosacral region (principal); M40.299 Other kyphosis, site unspecified; Z88.8 Allergy status to other drugs, medicaments and biological substances; Z79.899 Other long term (current) drug therapy

== ENCOUNTER → 2018-12-28 | Outpatient (CLI) | payer OTHER ==
[~2018-12-28] VITALS: Ht 149.9 cm; Wt 58.9 kg
[2018-12-28 13:11] VITALS: BP 136/76
--- NOTE | 2018-12-28 14:04 | NUR ---
Pain Clinic Assessment: 1. History of Osteoarthritis: BACK History of Rheumatoid Arthritis: Not Applicable 2. Height: 4 ft. 11 in. 149.9 cm. Weight: 129.8 lb. oz. 58.877 kg. Patient's BMI: 26.2 3. Vital Signs: BP: 136/76 Pulse: 67 Resp: 16 Temp: 02 Sat: 97 ECG Mon: 4. Pain Intensity: 8 5. Fall Risk: Dizziness: N Needs help standing or walking: Y Fallen in the last 3 months: N Fall risk comments: 6. Patient on Blood Thinner: None 7. History of Hypertension: Y 8. Opioid Therapy greater than 6 weeks: Y Opiate Contract Signed: 12/14/15 9. Risk Assessment Tool Provided: LOW RISK 0 10. Functional Assessment Tool: 11. Recreational Drug Use: Never Drug Type: Tobacco Use: Never Smoker Tobacco Type: Amount or Packs/day: How Many Years: Alcohol Use: No Frequency: Quant:
--- NOTE | 2018-12-30 10:08 | HPC ---
[facility] [place] [address] PAIN MANAGEMENT CONSULTATION Name: IDRIS BARKER Room #: REG [facility].#: [id number] Admission: 12/28/18 ������������������ Attend Phys: Quyen Loja Discharge: ������������������ Date of : 33 Report #: [id number] THIS REPORT FOR: //name// CC: Quyen Loja Anthony Dickens DATE OF SERVICE: 12/28/2018 CHIEF COMPLAINT: Back pain. HISTORY OF PRESENT ILLNESS: This is a very pleasant 83-year-old female who returns to the pain clinic today with her for refill of her medication. She has had multiple back surgeries in the past and suffers from scoliosis and spondylosis of the lumbar spine. She tries to be active around the house, but that does cause increase in pain; therefore, she has much difficulty accomplishing very much and her is very beneficial in helping her. She tells me her pain is also worse with standing and walking. It is better with lying down. She rates her pain score an 8/10 today and is due for one of her breakthrough pain pills. The patient was wondering about decreasing her medications. She feels that she is on a lot of medicines, though her tells me she can tell a difference when she has not taken her pain pills and she is less active and then just sits in her chair due to pain. ALLERGIES: BENADRYL and CODEINE. CURRENT LIST OF MEDICATIONS: Synthroid 100 mcg, Celebrex 200 mg daily, gabapentin 600 mg 3 times a day, atorvastatin, Zestril, probiotic, cranberry, vitamin D, aspirin, fentanyl patch 25 mcg and oxycodone half to one t.i.d. PQRS: 1. The patient has a history of osteoarthritis in her back. She denies any rheumatoid arthritis. 2. Height is 4 feet 11 inches, weight is 129 and BMI is 26. 3. VITAL SIGNS: Blood pressure 136/76, pulse is 67, respirations 16 and oxygen sat is 97. 4. Pain score is 8/10. 5. Denies dizziness. Does need help with walking and standing and uses a walker. She has not fallen in the last 3 months. 6. The patient is not on any blood thinners but does take medicine for hypertension. 7. Opioid therapy is greater than 6 weeks; therefore, an opiate signed contract is on the chart. The risk assessment tool is low. Functional assessment is 2470. 8. Recreational drug use, she denies. She is not a smoker and does not drink [address] [address] PAIN MANAGEMENT CONSULTATION Name: IDRIS BARKER Room #: REG [facility]#: [id number] Admission: 12/28/18 ������������������ Attend Phys: Quyen Loja Discharge: ������������������ Date of : 33 Report #: [id number] alcohol. We did check the prescription monitoring system. The patient is filling appropriately for her medications and is due for those to be filled today. We will check a drug screen on her in the next visit. PHYSICAL EXAMINATION: GENERAL: This is a well-developed, well-nourished, well-hydrated 83-year-old who appears her stated age, placing her current pain score today at 8/10. HEENT: Normocephalic and atraumatic. Pupils equal, round and reactive to light. Speech is fluent. EXTREMITIES: No clubbing, no cyanosis and no edema. MUSCULOSKELETAL: The patient is noted to have thoracic lumbar scoliosis and kyphosis. She does walk with an antalgic gait using a walker. Her lower extremity strength judged to be 4/5 bilaterally. She uses the armrest of the chair to rise from sitting to standing position to her walker. ASSESSMENT: 1. Idiopathic scoliosis and idiopathic kyphosis. 2. 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 3. Axial back pain. 4. Failed lumbar spine surgery. 5. Complex medical therapy and written opioid agreement. 6. Chronic intractable back pain. We reviewed the fact that opiate medications are being used to provide analgesia adequate to support activities of daily living, not attempting to achieve a specific pain score on the 0-10 Visual Analog Scale. The current opiate medications are providing sufficient analgesia to allow the patient to participate in activities of daily living. The patient is not exhibiting any aberrant behavior suggestive of drug diversion. The patient is not having any adverse reactions to medications. The patient is not suffering from daytime somnolence or mental acuity changes. The patient is managing opiate-induced constipation with appropriate rjws-dyu-ubkojgl agents and dietary considerations. The patient was counseled on concern for caution with operating a motor vehicle while using opiate medications. A physical exam was performed and the patient's functional status was evaluated. All patients with back pain were advised against the bed rest greater than 4 days and were advised to return to normal activities. Pain score assessment was noted and the treatment plan was reviewed with the patient. All current medications, both prescribed and OTC were reviewed and reconciled on the electronic medical record. Tobacco screening was accomplished and smoking cessation was advised when indicated. BMI was noted and diet/exercise modification was recommended for all patients following outside normal parameters. [address] [address] PAIN MANAGEMENT CONSULTATION Name: IDRIS BARKER Room #: REG S[facility] Francis#: [id number] Admission: 12/28/18 ������������������ Attend Phys: Quyen Loja Discharge: ������������������ Date of : 33 Report #: [id number] I reviewed with the patient today their responsibilities to safeguard prescription medications, reviewed their responsibility to utilize medications only as prescribed by the physician. They are to seek and receive pain medications only from 1 physician group ( [facility]). They are to use 1 pharmacy and keep the clinic informed if they change pharmacies. Their responsibilities include making followup visits in a timely fashion and to avoid abrupt discontinuation of medication usage. Their responsibilities further include bringing their medications (bottles from the pharmacy with residual pills) to the visit for possible confirmation of pill counts and the patient understands it is their responsibility to submit to random drug screens to ensure both that the medications prescribed are present, and that no other controlled substances are present. All prescriptions provided today were generated electronically. PLAN: 1. We discussed treatment options with the patient today. The patient was wondering if she should decrease her medications filling that she is not sure that they are helpful. I explained to her that we would slowly decrease her medicines if that was to be what she decided, decreasing her from 25 to 12 mcg fentanyl patch, though I believe that her pain would increase. The patient's voices his concern that he does not believe that she should decrease her medicine. He tells me that he can tell when she needs her breakthrough pain pills and that she becomes less active when she is in pain. He would like to keep her functioning and on the same medications. 2. Scripts given today for fentanyl 25 mcg, #10 for today and 4-week release and Oxycodone 10/325 half to one, #45 for today and 4-week release. The patient's prescription monitoring system is appropriate and according to the CDC guidelines, her morphine milligram equivalent is 82; therefore, she was given 2 months of medication. 3. The patient will call for an appointment when needed. She does not appear overmedicated or had problems with constipation. 4. This case was discussed with Dr. Ness who collaborated care today. ��������������������������������������������� <ELECTRONICALLY SIGNED> ���������������������������������������� By: Quyen Loja ��������������������������������������������� 12/30/18 1008 1427 [id number] Quyen Loja /nt
== END ==
LOC: PAIN 10:24
DX: M47.817 Spondylosis without myelopathy or radiculopathy, lumbosacral region (principal); M41.86 Other forms of scoliosis, lumbar region; G89.4 Chronic pain syndrome; Z79.891 Long term (current) use of opiate analgesic; Z79.899 Other long term (current) drug therapy

== ENCOUNTER → 2019-03-03 | Outpatient (CLI) | payer OTHER ==
[~2019-03-03] VITALS: Ht 149.9 cm; Wt 53.4 kg
[2019-03-03 10:49] VITALS: BP 108/58
--- NOTE | 2019-03-03 11:00 | NUR ---
Pain Clinic Assessment: 1. History of Osteoarthritis: BACK History of Rheumatoid Arthritis: Not Applicable 2. Height: 4 ft. 11 in. 149.9 cm. Weight: 117.8 lb. oz. 53.434 kg. Patient's BMI: 23.8 3. Vital Signs: BP: 108/58 Pulse: 81 Resp: 16 Temp: 02 Sat: 94 ECG Mon: 4. Pain Intensity: 8 5. Fall Risk: Dizziness: N Needs help standing or walking: Y Fallen in the last 3 months: N Fall risk comments: 6. Patient on Blood Thinner: None 7. History of Hypertension: Y 8. Opioid Therapy greater than 6 weeks: Y Opiate Contract Signed: 12/14/15 9. Risk Assessment Tool Provided: LOW RISK 0 10. Functional Assessment Tool: 11. Recreational Drug Use: Never Drug Type: Tobacco Use: Never Smoker Tobacco Type: Amount or Packs/day: How Many Years: Alcohol Use: No Frequency: Quant:
--- NOTE | 2019-03-04 13:15 | HPC ---
[facility] [place] [address] PAIN MANAGEMENT CONSULTATION Name: IDRIS BARKER [id number] Admission: 03/03/19 ������������������ Attend Phys: Quyen Loja Discharge: ������������������ Date of : 33 Report #: [id number] THIS REPORT FOR: //name// CC: Quyen Loja Anthony Dickens DATE OF SERVICE: 03/03/2019 CHIEF COMPLAINT: Low back pain. HISTORY OF PRESENT ILLNESS: This is a pleasant 84-year-old female who returns to the Pain Clinic today with her for a refill of her fentanyl patches that she uses to help treat her ongoing low back pain. It does not radiate into her legs. It remains in the lumbar spine mostly, but she does suffer from scoliosis and spondylosis so occasionally she does have mid back pain as well. She does report a pain score of 8/10 today. She reports moving a heavy comforter on the bed that did hurt her back and it has been more tender since she did that a week ago. Otherwise, she finds her fentanyl patch is very beneficial and her occasional oxycodone. ALLERGIES: BENADRYL AND CODEINE. CURRENT LIST OF MEDICATIONS: Oxycodone 10/325 b.i.d., fentanyl patch 25 mcg every 72 hours, aspirin, vitamin D, cranberry, lactobacillus, lisinopril 10 mg daily, atorvastatin 10 mg at bedtime, gabapentin 600 mg 3 times a day, Celebrex 200 mg daily, Synthroid 100 mcg daily. PQRS: 1. She has arthritic changes in her lumbar spine. Denies any rheumatoid arthritis. 2. Height is 4 feet 11 inches, weight is 117, BMI is 23. 3. Vital signs: 108/58, pulse is 81, respirations 16, oxygen sat is 94. 4. Pain score is 8/10. 5. Complains of slight dizziness. Does use a walker and has not fallen in the last 3 months. 6. The patient is not on any blood thinners, but does have a history of high blood pressure. 7. Opioid therapy is greater than 6 weeks; therefore, an opiate signed contract is on the chart. Risk assessment tool is low. Functional assessment is . 8. Recreational drug use, she denies. She is not a smoker and does not drink alcohol. According to the prescription monitoring system, the patient is filling appropriately for her medications. We will check a random drug screen on her in her next visit. [address] [address] PAIN MANAGEMENT CONSULTATION Name: IDRIS BARKER Room #: REG [facility] Francis#: [id number] Admission: 03/03/19 ������������������ Attend Phys: Quyen Loja Discharge: ������������������ Date of : 33 Report #: [id number] PHYSICAL EXAMINATION: GENERAL: This is a well-developed, well-nourished 84-year-old female who appears her stated age placing her current pain score 8/10. She is forgetful at times with recall of several facts. HEENT: Normocephalic, atraumatic, pupils equal, round and reactive to light. Speech is fluent. EXTREMITIES: No clubbing, no cyanosis. MUSCULOSKELETAL: The patient has a sick lumbar scoliosis and kyphosis. She walks with an antalgic gait using a walker. Her lower extremity strength judged to be 4/5 bilaterally. She has tenderness in the lumbar spine today on palpation. She uses the armrest to help her move from the sitting to standing position. ASSESSMENT: 1. Idiopathic scoliosis and idiopathic kyphosis. 2. 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 3. Axial back pain. 4. Failed lumbar spine surgery. 5. Chronic intractable back pain. 6. Complex medical therapy under written opioid agreement. We reviewed the fact that opiate medications are being used to provide analgesia adequate to support activities of daily living, not attempting to achieve a specific pain score on the 0-10 Visual Analog Scale. The current opiate medications are providing sufficient analgesia to allow the patient to participate in activities of daily living. The patient is not exhibiting any aberrant behavior suggestive of drug diversion. The patient is not having any adverse reactions to medications. The patient is not suffering from daytime somnolence or mental acuity changes. The patient is managing opiate-induced constipation with appropriate gqfc-xru-rrgeici agents and dietary considerations. The patient was counseled on concern for caution with operating a motor vehicle while using opiate medications. A physical exam was performed and the patient's functional status was evaluated. All patients with back pain were advised against the bed rest greater than 4 days and were advised to return to normal activities. Pain score assessment was noted and the treatment plan was reviewed with the patient. All current medications, both prescribed and OTC were reviewed and reconciled on the electronic medical record. Tobacco screening was accomplished and smoking cessation was advised when indicated. BMI was noted and diet/exercise modification was recommended for all patients following outside normal parameters. I reviewed with the patient today their responsibilities to safeguard prescription medications, reviewed their responsibility to utilize medications only as prescribed by the physician. They are to seek and receive pain [address] [address] PAIN MANAGEMENT CONSULTATION Name: IDRIS BARKER Room #: REG [facility]#: [id number] Admission: 03/03/19 ������������������ Attend Phys: Quyen Loja Discharge: ������������������ Date of : 33 Report #: [id number] medications only from 1 physician group ( [facility]). They are to use 1 pharmacy and keep the clinic informed if they change pharmacies. Their responsibilities include making followup visits in a timely fashion and to avoid abrupt discontinuation of medication usage. Their responsibilities further include bringing their medications (bottles from the pharmacy with residual pills) to the visit for possible confirmation of pill counts and the patient understands it is their responsibility to submit to random drug screens to ensure both that the medications prescribed are present, and that no other controlled substances are present. All prescriptions provided today were generated electronically. PLAN: 1. We discussed treatment options with the patient and family member today. We will refill her fentanyl 25 mcg patch, quantity 10 for today and 4-week release as well as her oxycodone 10/325 #60 for today and 4-week release. According to the CDC guidelines, this places her at 82 morphine mEq per day. 2. The patient has decreased her weight from 129 to 117 since our last visit and she had lost 2 pounds prior to that in the last 2 months prior. I did question the patient if she is remembering to eat. She feels like she has a good appetite. I was discussing increasing some Ensure or [place] Instant Breakfast. The did state that she had stopped eating ice cream before bed every day. I encouraged that maybe she could restart every other day if she feels like it or try to not decrease her weight any further if possible. They verbalized understanding. 3. The patient is complaining of slight dizziness. Today, her blood pressure is lower than her normal, today it is 108/58, in the past and averages around 136/76. She does take blood pressure medicines. I encouraged them to check her blood pressure on a daily basis. If it continues to be low, to report this to the primary care doctor since the patient is dizzy today as well as having the low blood pressure. 4. The patient also states that she is not drinking very much liquids throughout the day. I encouraged her to try and increase her fluid intake. This may be that she is just slightly dehydrated. 5. The patient is seen today in collaboration with Dr. Edson Ness, who will see her at her next visit. At that time, we will obtain a random urine drug screen from her as well. ��������������������������������������������� <ELECTRONICALLY SIGNED> ���������������������������������������� By: Quyen Loja ��������������������������������������������� 03/04/19 1315 1134 0028 Quyen Loja /fran
== END ==
LOC: PAIN 06:57
DX: M47.816 Spondylosis without myelopathy or radiculopathy, lumbar region (principal); M41.80 Other forms of scoliosis, site unspecified; G89.4 Chronic pain syndrome; Z79.899 Other long term (current) drug therapy; Z79.891 Long term (current) use of opiate analgesic; Z88.8 Allergy status to other drugs, medicaments and biological substances

== ENCOUNTER → 2019-03-31 | Outpatient (CLI) | payer OTHER ==
[~2019-03-31] VITALS: Ht 149.9 cm; Wt 59.0 kg
[2019-03-31 10:03] VITALS: BP 113/70
--- NOTE | 2019-03-31 10:35 | NUR ---
Pain Clinic Assessment: 1. History of Osteoarthritis: BACK History of Rheumatoid Arthritis: Not Applicable 2. Height: 4 ft. 11 in. 149.9 cm. Weight: 130.0 lb. oz. 58.968 kg. Patient's BMI: 26.2 3. Vital Signs: BP: 113/70 Pulse: 78 Resp: 14 Temp: 02 Sat: 95 ECG Mon: 4. Pain Intensity: 8 5. Fall Risk: Dizziness: Y Needs help standing or walking: Y Fallen in the last 3 months: Y Fall risk comments: 6. Patient on Blood Thinner: None 7. History of Hypertension: Y 8. Opioid Therapy greater than 6 weeks: Y Opiate Contract Signed: 12/14/15 9. Risk Assessment Tool Provided: LOW RISK 0 10. Functional Assessment Tool: 11. Recreational Drug Use: Never Drug Type: Tobacco Use: Never Smoker Tobacco Type: Amount or Packs/day: How Many Years: Alcohol Use: No Frequency: Quant:
--- NOTE | 2019-04-13 07:57 | HPC ---
[facility] [address] [place] [address] PAIN MANAGEMENT CONSULTATION Name: IDRIS BARKER Room #: REG [facility] M.R.#: [id number] Admission: 03/31/19 Attend Phys: Edson Ness DO Discharge: Date of : 31 Report #: [id number] THIS REPORT FOR: //name// CC: Anthony Ness DATE OF SERVICE: 03/31/2019 CHIEF COMPLAINT: Low back pain. HISTORY OF PRESENT ILLNESS: As you know, the patient is an 84-year-old female returning in followup visit indicating she is running low of her opioid medications. She is placing pain score 8/10. States her pain is aching and pressure in sensation, exacerbated with standing, walking, lifting, improves with medications and seated position. She returns today in followup visit to receive medication management for which she is taking fentanyl q. 72 hours along with oxycodone 10/325 up to 2-3 a day for pain control. She states her pain has begun to intensify. She is now placing pain score around 8/10 and wishes to discuss possible adjustments in therapy. She denies injury or trauma or any changes in medical history since our last visit. ALLERGIES: BENADRYL, CODEINE. CURRENT MEDICATIONS: Oxycodone 10/325 mg dose 1 tab p.o. t.i.d. p.r.n., fentanyl 25 mcg q. 72 hours, aspirin 81 mg per day, cholecalciferol 2000 units per day, cranberry extract 200 mg once a day, lactobacillus 1 cap per day, lisinopril 10 mg per day, atorvastatin 10 mg per day, gabapentin 600 mg t.i.d., celecoxib 200 mg once a day, levothyroxine 100 mcg per day. SOCIAL HISTORY: The patient denies tobacco, alcohol, IV or illicit drug use. She is retired, retired years ago, accompanied by her present in room today. IMAGING: No new imaging available. PQRS: The patient has known arthritic changes of the lumbar spine, bilateral hips, no rheumatoid arthritis. She is placing pain score at 8/10. She is a fall risk and has had multiple falls in the last 3 months. She is using a roller walker at home and a wheelchair at the hospital. She is not on blood thinners. She is treated for hypertension. She is on chronic opioids, has a low opioid addiction potential based on our assessment tool. She is placing pain impact score 26/70, mild to moderate interference of daily activities secondary to pain. PHYSICAL EXAMINATION: [address] [address] PAIN MANAGEMENT CONSULTATION Name: IDRIS BARKER Room #: REG [facility].#: [id number] Admission: 03/31/19 Attend Phys: Edson Ness DO Discharge: Date of : 31 Report #: [id number] VITAL SIGNS: Blood pressure 113/70, pulse 78, respiratory rate 14 and unlabored. The patient is 95% on room air. Height 4 feet 11 inches tall, weight 130 pounds, BMI calculated 26.2. GENERAL: Well-developed, well-nourished, well-hydrated kyphotic and scoliotic 84-year-old female appearing stated age, pain is rated around 8/10. HEENT: Normocephalic, atraumatic. Pupils equal, round, reactive to light. EXTREMITIES: Show no clubbing, no cyanosis. There is 1+ nonpitting lower extremity edema. MUSCULOSKELETAL: The patient has noted scoliosis and kyphosis. She is able to stand from a seated position with pain intensity increase over the axial back, no radiation of symptoms. Gait is extremely antalgic. She has weakened strength bilaterally in lower extremities 4/5 maximal. She does appear to be intact to light touch from L1 through S2 dermatomes. ASSESSMENT: 1. Idiopathic scoliosis. 2. Idiopathic kyphosis. 3. Lumbosacral spondylosis without radicular symptoms at present. 4. Failed lumbar spine surgery. 5. Complex medication management utilizing opioid medication. 6. Chronic intractable pain. PLAN: 1. The patient returns today in followup visit indicating her pain has begun to intensify. She states pain intensity is now to a level where she is utilizing both of her oxycodone along with the fentanyl patch. She is requesting adjustments in medication management in hopes of improving pain. We discussed the recent CDC guideline changes recommending limitations of medications of less than 90 morphine equivalents a day. At present, the patient is at the higher levels of opioid utilizing a 25 mcg patch, which equates to approximately 60 morphine equivalents a day along with 20 mg of oxycodone, equaling 30 mg per day thus reaching the top level of 90 morphine equivalents a day. We agreed to make adjustments today in hopes of improving pain with the understanding that long-term therapy will ultimately have to be adjusted based on CDC recommended guidelines. 2. The patient will submit to urine drug screen as part of our screening process. We expect to see fentanyl as well as gabapentin and oxycodone metabolites. We will review the findings once they are available. She can contact our clinic next week if she wishes to obtain results. 3. The patient will be continued on fentanyl 25 mcg patch 1 patch q. 72 hours, given the patient #10 patches releasing today and 4 weeks from today, 2 months' worth of medication. 4. We will increase the patient's oxycodone from 2 a day to 3 a day with the understanding that this will ultimately have to be adjusted to comply with CDC's recommended guidelines. If she is not seeing significant improvement in symptoms with the extra dose of oxycodone, I would recommend lowest most [facility] [address] [place] [address] PAIN MANAGEMENT CONSULTATION Name: IDRIS BARKER Room #: REG [facility] Penny#: [id number] Admission: 03/31/19 Attend Phys: Edson Ness DO Discharge: Date of : 31 Report #: [id number] effective dose. She was given #90 tablets of the oxycodone releasing today and 4 weeks from today. 5. Recommend strongly the patient consider her options for management as ultimately opioid medications based on current political environment looks as if they will be ultimately going away for chronic pain. We will need to adjust eventually. We recommend to the patient's lowest most effective dose. She should only use the 3 tablets when necessary. 6. We will see her back in followup visit in 2 months for further evaluation. <ELECTRONICALLY SIGNED> By: Edson Ness DO 04/13/19 [id number] Edson Ness DO /nt
== END ==
LOC: PAIN 07:01
DX: M47.817 Spondylosis without myelopathy or radiculopathy, lumbosacral region (principal); M41.80 Other forms of scoliosis, site unspecified; Z79.891 Long term (current) use of opiate analgesic; G89.4 Chronic pain syndrome; Z88.8 Allergy status to other drugs, medicaments and biological substances; Z79.899 Other long term (current) drug therapy